=== PATIENT | female | born 1975 | race Caucasian/White ===

== ENCOUNTER 2025-10-19 17:57 | Inpatient (IN) | payer SELFPAY ==
[2025-10-19] VITALS (34 sets, daily range): BP systolic 123–201; BP diastolic 49–114; PULSE 106–137; TEMP 36.9; O2SAT 93–98; BMI 29.5
--- NOTE | 2025-10-19 19:04 | PC.NURSE ---
report handed off to lina nicolas
--- OUTSIDE RECORDS SUMMARY | 2025-10-19 19:29 | XMS_ITS | Clinical Summary ---
Author Organization [facility] Address [id number] [address] [place] [address] Care Team Providers Care Clinical Education Consultant Name Role Phone Unavailable Primary Care Provider Unavailabl e Immunizations ImmunizationAdministration DatesNext DueCOVID-19, mRNA, LNP-S, PF, 100mcg/0.5mL Dose02/10/2021,01/13/2021 Social History Tobacco UseTypesPacks/DayYears UsedDateSmoking Tobacco: Never AssessedChildcare AnswerDate BbiunmvrDnhcgrnbiZtycque97/17/2021EmploymentAnswerDate Recorded IibwhbcvmcFycnypq36/17/2021Purpose - LifeAnswerDate RecordedPurpose and direction in adybSacoyhk57/17/2021CommentsUnknownSex and Gender InformationValueDate RecordedSex Assigned at BirthNot on fileLegal SexFemale 01/11/2021 8:14 AM EDTGender IdentityNot on fileSexual OrientationNot on file Plan of Treatment Health MaintenanceDue DateLast DoneCommentsDepression Runkaixrd32/11/1985Tobacco Ggzntsyly08/11/1985Adult BMI Iwitlobkg43/11/1991DTaP,Tdap and Td Vaccines (1 - Tdap)02/06/1992Pap Smear1994Zoster (Shingles) Vaccine (1 of 2)2023 COVID-19 Vaccine (3 - 2024- season)504/, 01/13/2021Influenza Ezyvvyf6006/28/2025 Medical Devices Not on file
--- NOTE | 2025-10-19 19:37 | CT_ITS ---
The [address] [address] Patient Name: MAREN BANKS MRN: [id number] date: 1975 Sex: F Assigned Patient Location: ER Current Patient Location: ER Accession/Order Number: [id number] Exam Date: 10/19/2025 19:49 Report Date: 10/19/2025 20:50 At the request of: ALISHA SUAREZ Procedure: CT abdomen pelvis w con CT Abdomen and Pelvis withcontrast TECHNIQUE: Axial imaging with 2-D reconstruction. The CT exam was performed using one or more the following dose reduction techniques: Automated exposure control, adjustment of the MA and/or Kv according to patient size, or use of the iterative reconstruction technique. COMPARISON: None History: Lower abdominal pain. Diarrhea for one week. LIMITATIONS: None LOWER THORAX tiny layering low-density pleural effusions. Thickening of distal esophageal wall. May suggest esophagitis or reflux. LIVER: Unremarkable GALLBLADDER: No gallbladder abnormality identified. BILE DUCTS: No dilatation SPLEEN: Unremarkable PANCREAS: Unremarkable ADRENAL GLANDS: Unremarkable KIDNEYS:Curvilinear region of haziness involving the posterior lateral portion of the left kidney identified. Suspected represent remote finding. No parenchymal fracture identified. No active extravasation of contrast. No nephrolithiasis or obstructive uropathy. AORTA: No abdominal aortic aneurysm identified. RETROPERITONEUM: No significant retroperitoneal abnormalities identified. MESENTERY:Unremarkable STOMACH:Unremarkable SMALL BOWEL: The small bowel loops are nondistended. APPENDIX: The appendix is normal. COLON: Unremarkable URINARY BLADDER: Urinary bladder is unremarkable. REPRODUCTIVE SYSTEM: Fibroid uterus. Superior to the urinary bladder and extrinsically compressing on the urinary bladder and adjacent to the uterus and adnexa, there is a thin-walled fluid collection arising from the pelvis extending to the lower abdomen. There is mild adjacent stranding identified. Technique circumferentially covering the collection there is an elongated loop of bowel. There is mild dilatation of loops of bowel. This may result in partial obstruction. This may cause or There is This measures up to 20 cm in craniocaudal dimension. This measures up to 12 cm in AP dimension. PNEUMOPERITONEUM: None PERITONEAL FLUID:Small amount of fluid identified within the pelvis adjacent to the fluid collection. BONY STRUCTURES: Extensive L4-5 spondylosis. ABDOMINAL WALL: Unremarkable CT/CT abdomen pelvis w con IMPRESSION: Large up to 20 cm fluid collection arising from the pelvis extending into the lower abdomen. This effaces the superior portion of the urinary bladder and abuts the adnexa. This may be of adnexal origin. Fibroid uterus. There is an extrinsic compression adjacent bowel loop which nearly completely circumferentially surrounds the fluid collection. There is resulting in mild partial obstructive changes of the bowel.. consideration for surgical/gynecology consultation. Subtle region of curvilinear fatty stranding adjacent to the superior pole of the left kidney. Suspected represent benign finding. May consider short-term follow-up assessment. Impression dictated by: Lyle Lipscomb M.D. 10/19/2025 8:50 PM Dictation [facility] Electronically authenticated by: [id number] Y Date: 10/19/2025 20:50
--- OUTSIDE RECORDS SUMMARY | 2025-10-19 19:55 | XMS_ITS | Encounter Summary ---
Author Organization [facility] Address [id number] [address] [place] [address] Care Team Providers Care Seam Sewer Name Role Phone Unavailable Primary Care Provider Unavailabl e Encounter Details DateTypeDepartmentCare Team (Latest Contact Info)Imlgptuomtb78/23/2025 7:55 PM ESTAncillary Procedure [facility] [employer] [address] [place] [address] Pain Social History Tobacco UseTypesPacks/DayYears UsedDateSmoking Tobacco: Never AssessedChildcare AnswerDate IpmcnktmQgrwaliwmKfzqajh23/17/2021EmploymentAnswerDate Recorded GjtjjasrfaQcyyevw29/17/2021Purpose - LifeAnswerDate RecordedPurpose and direction in fjewGhzqgcu40/17/2021CommentsUnknownSex and Gender InformationValueDate RecordedSex Assigned at BirthNot on fileLegal SexFemale 01/11/2021 8:14 AM EDTGender IdentityNot on fileSexual OrientationNot on file documented as of this encounter Plan of Treatment Not on file documented as of this encounter Procedures Procedure NamePriorityDate/TimeAssociated DiagnosisCommentsCT ABDOMEN AND PELVIS W MXQKJcsbcnk84/23/2025 7:55 PM EST Pain documented in this encounter Results * CT abdomen and pelvis with contrast (10/19/2025 7:55 PM EST)Specimen (Source) Anatomical Location / LateralityCollection Method / VolumeCollection Time Received Time Narrative Authorizing ProviderResult TypeResult StatusScanning Provider ExternalIMG CT ORDERABLESFinal Result documented in this encounter Visit Diagnoses Diagnosis Pain Generalized pain documented in this encounter
[2025-10-19 19:56] LABS: Hematocrit 37.8 % (36.0-48.0); Hemoglobin 12.5 g/dL (12.0-16.0); Mean Corpuscular HGB Conc 33.1 g/dL (29.9-35.2); Mean Corpuscular Hemoglobin 27.7 pg (26.7-34.0); Mean Corpuscular Volume 83.6 fL (81.0-99.0); Platelet Count 345 10^3/uL (150-450); Red Blood Count 4.52 10^6/uL (4.20-5.40); White Blood Count 12.9 10^3/uL (4.0-11.0)
[2025-10-19 20:01] LABS: Glucose Urine UA >=1000 mg/dL (NEGATIVE)
[2025-10-19] MEDS: 0.9 % SODIUM CHLORIDE 1,000 ML 1000 ML IV (20:06)
[2025-10-19 20:13] LABS: Lactate/Lactic Acid 1.1 mmol/L (0.4-2.0)
[2025-10-19 20:13] LABS: Cast Seen? NONE SEEN #/LPF (NONE SEEN); Crystals Seen? None Seen #/HPF (None Seen); Urine Culture Indicated NO
[2025-10-19 20:22] LABS: Alanine Aminotransferase 34 U/L (14-59); Albumin Globulin Ratio 0.4; Albumin Level 2.3 g/dL (3.4-5.0); Alkaline Phosphatase 137 U/L (46-116); Anion Gap 16.7; Aspartate Amino Transferase 22 U/L (15-37); Blood Urea Nitrogen 8.0 mg/dL (7.0-18.0); Calcium 8.9 mg/dL (8.5-10.1); Carbon Dioxide 27.6 mmol/L (21.0-32.0); Chloride 91 mmol/L (98-107); Estimated GFR (African America >60 (>=60 mL/min/1.73m^2); Estimated GFR (Non-African Ame >60 (>=60 mL/min/1.73m^2); Globulin 5.4 g/dL; Glucose 343 mg/dL (74-106); Lipase <10.0 U/L (16.0-77.0); Potassium 3.3 mmol/L (3.5-5.1); Sodium 132 mmol/L (136-145); Total Protein 7.7 g/dL (6.4-8.2)
[2025-10-19 20:42] LABS: Band Neutrophils Absolute 0.1 10^3/uL (0.0-0.3); Basophils Abs Manual 0.00 10^3/uL (0.00-0.10); Basophils Percent Manual 0.0 % (0.2-2.0); Eosinophils Absolute Manual 0.12 10^3/uL (0.00-0.70); Eosinophils Percent Manual 1.0 % (0.9-7.0); Lymphocytes Absolute Manual 2.32 10^3/uL (1.20-3.80); Lymphocytes Percent Manual 18.0 % (20.5-60.0); Monocytes Absolute Manual 1.93 10^3/uL (0.30-0.80); Monocytes Percent Manual 15.0 % (1.7-12.0); Segmented Neut Absolute Manual 8.38 10^3/uL (1.4-6.5); Segmented Neutrophils % Manual 65.0 (43.0-75.0)
--- NOTE | 2025-10-19 21:01 | US_ITS ---
The [address] [address] Patient Name: MAREN BANKS MRN: [id number] date: 1975 Sex: F Assigned Patient Location: ED.MAIN Current Patient Location: ED.MAIN Accession/Order Number: [id number] Exam Date: 10/19/2025 21:29 Report Date: 10/19/2025 22:35 At the request of: ALISHA SUAREZ Procedure: US pelvis transvaginal Transabdominal and transvaginal pelvic ultrasound HISTORY: 20 cm fluid collection identified with CT of abdomen and pelvis 10/16/2025. Assessment for ovarian torsion. The uterus is anteverted and retroflexed. Uterus measures 6.9 x 2.0 x 3.8 cm. Within the uterus of the hypoechoic lesions measuring up to 3.4 cm consistent with fibroids. Small amount of fluid is present in the cul-de-sac. Endometrial total combined thickness of 1.8 mm. Right adnexal region contains hypoechoic area measuring 6.0 x 5.8 x 5.0 cm containing calcifications. Very large hypoechoic area is also present within the pelvis incompletely visualized. Maximal measurement up to 14.7 cm. There is a hypoechoic area within this lesion measuring up to 4 cm. Ovaries cannot be adequately visualized with ultrasound. US/US pelvis transvaginal IMPRESSION: Partial visualization of the large fluid collection better visualized with the CT examination. Within this collection there is a hypoechoic component measuring up to 4.0 cm. This may correspond with region of fat versus soft tissue nodule. This may further suggest origin from the ovary and may represent joint lesion. Ovaries are not visualized to assess for torsion. There is small amount of free fluid in the cul-de-sac. There is no evidence of hemoperitoneum or active bleeding. Impression dictated by: Lyle Lipscomb M.D. 10/19/2025 10:35 PM Dictation Location[facility] Electronically authenticated by: [id number] Y Date: 10/19/2025 22:35
--- NOTE | 2025-10-19 21:20 | ED.GENADUL1 ---
Documented by User: DANIELA Mcbride 10/19/25 22:03 HPI HPI - General Adult General Chief complaint: Nausea/Vomiting/Diarrhea Stated complaint: DEHYDRATED, STOMACH FLU AFTER FLIGHT Time Seen by Provider: 10/19/25 19:11 Source: patient Mode of arrival: walk-in Limitations: no limitations History of Present Illness HPI narrative: Patient is a 50-year-old female that presents with complaints of nausea, diarrhea, and lower abdominal pain that started a week ago while she was on a flight home from [place]. She denies any previous abdominal or pelvic surgeries. She has never been and states she went through menopause about 10 years ago. She has not seen an SUPERINTENDENT MEASUREMENT in about 20 years. She notes that her diarrhea improved around or Saturday but then has been intermittently bad since then. She states she is drinking 12 to 14 glasses of water or Gatorade daily and still feels like she has a dry mouth and is dehydrated. Also reports that she has developed some acid reflux since this started. Related Data Home Medications ?Medication ?Instructions ?Recorded ?Confirmed No Known Home Medications 10/20/25 10/20/25 Allergies Allergy/AdvReac Type Severity Reaction Status Date / Time nitrofurantoin AdvReac Intermediate Diarrhea Verified 10/19/25 18:23 Opioid HPI Opioid Management Most Recent Opioid Data: Last Pain Scale 5 Today, 02:53 Last MAR Pain Assessment Today, 02:53 Review of Systems ROS Status of ROS 10 or more systems reviewed and unremarkable except as noted in history and below PFSH PFSH Social History Little interest or pleasure in doing things: not at all Feeling down, depressed, or hopeless: not at all Exam Narrative Exam Narrative: General: No distress, age-appropriate Skin: Warm, dry, no pallor. No rash. Head: Normocephalic, atraumatic. Neck: Supple, non-tender. Eye: Pupils are equal, round and EOMI. No scleral icterus. Ears, Nose, Mouth, and Throat: No nasal mucosal hypertrophy. Oral mucosa is dry, no posterior oropharynx erythema, uvula is mid-line Cardiovascular: Regular Rate and Rhythm without murmur, gallop or rub. Respiratory: No accessory muscle use or respiratory distress. Lungs are clear to auscultation, no wheezing, rales or rhonchi Chest Wall: no tenderness Back: No midline thoracic or lumbar vertebral tenderness. Musculoskeletal: Full ROM of all extremities, no calf or popliteal tenderness GI: Abdomen is soft, non-distended, LLQ/RLQ tender with palpation. No masses appreciated. No rebound, guarding, or rigidity noted. Neurological: A&O x4. No cranial nerve dysfunction observed. No truncal ataxia. Moves all extremities. Sensation intact. Psychiatric: Cooperative and interactive. Normal mood and affect. Constitutional Vital Signs, click to edit/add: Last Vital Signs Temp 98.4 F 10/19/25 18:23 Pulse 104 H 10/20/25 03:20 Resp 19 10/20/25 03:20 BP 148/106 H 10/20/25 03:00 Pulse Ox 97 10/20/25 03:20 O2 Del Method Room Air 10/19/25 18:23 Documenting provider has reviewed patient's vital signs: yes Course Vital Signs Vital signs: Vital Signs Temperature 98.4 F 10/19/25 18:23 Pulse Rate 131 H 10/19/25 18:23 Respiratory Rate 18 10/19/25 18:23 Blood Pressure 123/49 10/19/25 18:23 Pulse Oximetry 97 10/19/25 18:23 Oxygen Delivery Method Room Air 10/19/25 18:23 Temperature 98.4 F 10/19/25 18:23 Pulse Rate 104 H 10/20/25 03:20 Respiratory Rate 19 10/20/25 03:20 Blood Pressure 148/106 H 10/20/25 03:00 Pulse Oximetry 97 10/20/25 03:20 Oxygen Delivery Method Room Air 10/19/25 18:23 Medical Decision Making MDM Narrative Medical decision making narrative: The patient is a 50-year-old postmenopausal female presenting with one week of nausea, diarrhea, lower abdominal pain, and signs of dehydration. On arrival, she is tachycardic but hemodynamically stable. IV placed and 1 L normal saline ordered. Labs reveal leukocytosis (WBC 12.9), mild hyponatremia (Na 132), hypokalemia (K 3.3), hyperglycemia (glucose 343), and urinalysis notable for glucosuria, ketonuria, and trace hematuria. CT abdomen/pelvis demonstrates a large (~20 cm) pelvic fluid collection, likely of adnexal origin, causing mass effect on the bladder and partial bowel obstruction. Differential diagnosis includes a large ovarian cyst or neoplasm, tubo-ovarian abscess, and partial bowel obstruction secondary to mass effect. The patient will be made NPO given partial obstruction, with IV fluid resuscitation, electrolyte replacement (IV potassium 20 mEq/hour peripherally). Pelvic ultrasound transvaginal ordered to further characterize this fluid collection and rule out ovarian torsion. At this time, 2200, my shift has ended and patients case signed out to Dr Epperson. Disposition pending Ultrasound results and acceptance to a facility with appropriate surgical services. I discussed with patient lab and CT results and that this will require transfer as we do not have surgical services here. Differential Diagnosis Differential Diagnosis: Diverticulitis, gastroenteritis, ischemic bowel disease, appendicitis Lab Data Lab results reviewed: Yes I reviewed the patient's lab results Labs: Lab Results 10/19/25 10/19/25 Range/Units 19:28 19:45 WBC 12.9 H (4.0-11.0) 10^3/uL RBC 4.52 (4.20-5.40) 10^6/uL Hgb 12.5 (12.0-16.0) g/dL Hct 37.8 (36.0-48.0) % MCV 83.6 (81.0-99.0) fL MCH 27.7 (26.7-34.0) pg MCHC 33.1 (29.9-35.2) g/dL RDW 13.0 (11.0-15.0) % Plt Count 345 (150-450) 10^3/uL MPV 10.0 (9.5-13.5) fL Seg Neuts % (Manual) 65.0 (43.0-75.0) Band Neutrophils % 1.0 (0-5) % Lymphocytes % (Manual) 18.0 L (20.5-60.0) % Monocytes % (Manual) 15.0 H (1.7-12.0) % Eosinophils % (Manual) 1.0 (0.9-7.0) % Basophils % (Manual) 0.0 L (0.2-2.0) % Neutrophils # (Manual) 8.38 H (1.4-6.5) 10^3/uL Band Neutrophils # 0.1 (0.0-0.3) 10^3/uL Lymphocytes # (Manual) 2.32 (1.20-3.80) 10^3/uL Monocytes # (Manual) 1.93 H (0.30-0.80) 10^3/uL Eosinophils # (Manual) 0.12 (0.00-0.70) 10^3/uL Basophils # (Manual) 0.00 (0.00-0.10) 10^3/uL Sodium 132 L (136-145) mmol/L Potassium 3.3 L (3.5-5.1) mmol/L Chloride 91 L (98-107) mmol/L Carbon Dioxide 27.6 (21.0-32.0) mmol/L Anion Gap 16.7 BUN 8.0 (7.0-18.0) mg/dL Creatinine 0.72 (0.55-1.02) mg/dL Est GFR ( Amer) >60 (>=60 mL/min/1.73m^2) Est GFR (Non-Af Amer) >60 (>=60 mL/min/1.73m^2) BUN/Creatinine Ratio 11.1 Glucose 343 H (74-106) mg/dL Lactate 1.1 (0.4-2.0) mmol/L Calcium 8.9 (8.5-10.1) mg/dL Total Bilirubin 0.6 (0.2-1.0) mg/dL AST 22 (15-37) U/L ALT 34 (14-59) U/L Alkaline Phosphatase 137 H (46-116) U/L Total Protein 7.7 (6.4-8.2) g/dL Albumin 2.3 L (3.4-5.0) g/dL Globulin 5.4 g/dL Albumin/Globulin Ratio 0.4 Lipase <10.0 L (16.0-77.0) U/L Urine Color Yellow (YELLOW) Urine Clarity Clear (CLEAR) Urine pH 6.0 (5.0-9.0) Ur Specific [place] 1.015 (1.005-1.025) Urine Protein 30 A (NEG/TRACE) mg/dL Urine Glucose (UA) >=1000 A (NEGATIVE) mg/dL Urine Ketones >=80 A (NEGATIVE) mg/dL Urine Occult Blood Moderate A (NEGATIVE) Urine Nitrite Negative (NEGATIVE) Urine Bilirubin Moderate A (NEGATIVE) Urine Urobilinogen 1.0 (0.2-1.0) EU/dL Ur Leukocyte Esterase Negative (NEGATIVE) Urine RBC 5-10 A (0-2) #/HPF Urine WBC 0-2 A (NONE SEEN) #/HPF Ur Squamous Epith Cells Few A (NONE/RARE) #/LPF Urine Crystals None seen (None Seen) #/HPF Urine Bacteria Trace A (NONE SEEN) #/HPF Urine Casts None seen (NONE SEEN) #/LPF Urine Mucus Trace A (NONE SEEN) Ur Culture Indicated? No Imaging Data CT scan - abdomen: Attestation: I have reviewed the pertinent imaging results. Radiologist's impression: ITS Impressions Abdomen/Pelvis CT 10/19/25 19:37 IMPRESSION: Large up to 20 cm fluid collection arising from the pelvis extending into the lower abdomen. This effaces the superior portion of the urinary bladder and abuts the adnexa. This may be of adnexal origin. Fibroid uterus. There is an extrinsic compression adjacent bowel loop which nearly completely circumferentially surrounds the fluid collection. There is resulting in mild partial obstructive changes of the bowel.. consideration for surgical/gynecology consultation. Subtle region of curvilinear fatty stranding adjacent to the superior pole of the left kidney. Suspected represent benign finding. May consider short-term follow-up assessment. Impression dictated by: Lyle Lipscomb M.D. 10/19/2025 8:50 PM Dictation Location: [facility] Electronically authenticated by: [id number] Y Date: 10/19/2025 20:50 Transvaginal US 10/19/25 21:01 IMPRESSION: Partial visualization of the large fluid collection better visualized with the CT examination. Within this collection there is a hypoechoic component measuring up to 4.0 cm. This may correspond with region of fat versus soft tissue nodule. This may further suggest origin from the ovary and may represent joint lesion. Ovaries are not visualized to assess for torsion. There is small amount of free fluid in the cul-de-sac. There is no evidence of hemoperitoneum or active bleeding. Impression dictated by: Lyle Lipscomb M.D. 10/19/2025 10:35 PM Dictation Location: [facility] Electronically authenticated by: [id number] Y Date: 10/19/2025 22:35 US - abdomen: Radiologist's impression: ITS Impressions Abdomen/Pelvis CT 10/19/25 19:37 IMPRESSION: Large up to 20 cm fluid collection arising from the pelvis extending into the lower abdomen. This effaces the superior portion of the urinary bladder and abuts the adnexa. This may be of adnexal origin. Fibroid uterus. There is an extrinsic compression adjacent bowel loop which nearly completely circumferentially surrounds the fluid collection. There is resulting in mild partial obstructive changes of the bowel.. consideration for surgical/gynecology consultation. Subtle region of curvilinear fatty stranding adjacent to the superior pole of the left kidney. Suspected represent benign finding. May consider short-term follow-up assessment. Impression dictated by: Lyle Lipscomb M.D. 10/19/2025 8:50 PM Dictation Location: [facility] Electronically authenticated by: [id number] Y Date: 10/19/2025 20:50 Transvaginal US 10/19/25 21:01 IMPRESSION: Partial visualization of the large fluid collection better visualized with the CT examination. Within this collection there is a hypoechoic component measuring up to 4.0 cm. This may correspond with region of fat versus soft tissue nodule. This may further suggest origin from the ovary and may represent joint lesion. Ovaries are not visualized to assess for torsion. There is small amount of free fluid in the cul-de-sac. There is no evidence of hemoperitoneum or active bleeding. Impression dictated by: Lyle Lipscomb M.D. 10/19/2025 10:35 PM Dictation Location: [facility] Electronically authenticated by: [id number] Y Date: 10/19/2025 22:35 Discharge Plan Discharge Chief Complaint: Nausea/Vomiting/Diarrhea Clinical Impression: Pelvic fluid collection, Partial bowel obstruction, Hypokalemia Patient Disposition: Admitted as Observation Time of Disposition Decision: 03:44 Condition: Fair Documented by User: Callie Epperson MD 10/20/25 03:44 HPI HPI - General Adult General Chief complaint: Nausea/Vomiting/Diarrhea Stated complaint: DEHYDRATED, STOMACH FLU AFTER FLIGHT Time Seen by Provider: 10/19/25 19:11 Related Data Home Medications ?Medication ?Instructions ?Recorded ?Confirmed No Known Home Medications 10/20/25 10/20/25 Allergies Allergy/AdvReac Type Severity Reaction Status Date / Time nitrofurantoin AdvReac Intermediate Diarrhea Verified 10/19/25 18:23 Opioid HPI Opioid Management Most Recent Opioid Data: Last Pain Scale 5 Today, 02:53 Last MAR Pain Assessment Today, 02:53 PFSH PFSH Social History Little interest or pleasure in doing things: not at all Feeling down, depressed, or hopeless: not at all Exam Constitutional Vital Signs, click to edit/add: Last Vital Signs Temp 98.4 F 10/19/25 18:23 Pulse 104 H 10/20/25 03:20 Resp 19 10/20/25 03:20 BP 148/106 H 10/20/25 03:00 Pulse Ox 97 10/20/25 03:20 O2 Del Method Room Air 10/19/25 18:23 Course Vital Signs Vital signs: Vital Signs Temperature 98.4 F 10/19/25 18:23 Pulse Rate 131 H 10/19/25 18:23 Respiratory Rate 18 10/19/25 18:23 Blood Pressure 123/49 10/19/25 18:23 Pulse Oximetry 97 10/19/25 18:23 Oxygen Delivery Method Room Air 10/19/25 18:23 Temperature 98.4 F 10/19/25 18:23 Pulse Rate 104 H 10/20/25 03:20 Respiratory Rate 19 10/20/25 03:20 Blood Pressure 148/106 H 10/20/25 03:00 Pulse Oximetry 97 10/20/25 03:20 Oxygen Delivery Method Room Air 10/19/25 18:23 Medical Decision Making [facility] Narrative Medical decision making narrative: The patient is a 50-year-old postmenopausal female presenting with one week of nausea, diarrhea, lower abdominal pain, and signs of dehydration. On arrival, she is tachycardic but hemodynamically stable. IV placed and 1 L normal saline ordered. Labs reveal leukocytosis (WBC 12.9), mild hyponatremia (Na 132), hypokalemia (K 3.3), hyperglycemia (glucose 343), and urinalysis notable for glucosuria, ketonuria, and trace hematuria. CT abdomen/pelvis demonstrates a large (~20 cm) pelvic fluid collection, likely of adnexal origin, causing mass effect on the bladder and partial bowel obstruction. Differential diagnosis includes a large ovarian cyst or neoplasm, tubo-ovarian abscess, and partial bowel obstruction secondary to mass effect. The patient will be made NPO given partial obstruction, with IV fluid resuscitation, electrolyte replacement (IV potassium 20 mEq/hour peripherally). Pelvic ultrasound transvaginal ordered to further characterize this fluid collection and rule out ovarian torsion. At this time, 2200, my shift has ended and patients case signed out to Dr Epperson. Disposition pending Ultrasound results and acceptance to a facility with appropriate surgical services. I discussed with patient lab and CT results and that this will require transfer as we do not have surgical services here. This patient was seen and evaluated in conjunction with the physician general surgery physician assistant. He states that her bowels typically are all or nothing , by that she means she either has diarrhea or constipation. She has never been diagnosed with diverticulitis or irritable bowel syndrome. She presents for evaluation of flulike symptoms according to her. She states she has been having diarrhea and intermittent nausea. She has not had any fever or active vomiting. She was tachycardic upon arrival. She has made several trips to the bathroom. CT scan shows a large approximately 20 cm pelvic fluid collection likely of adnexal origin, please refer to the full CT scan report, it also shows a partial bowel obstruction secondary to mass effect. Ultrasound was ordered to rule out torsion. The ultrasound was unable to thoroughly evaluate the ovaries. There is no sign of any active bleeding. This case was discussed at length with the [facility] department at [facility] and she is accepted for admission to the [facility] service under the service of Dr. Shetty. A bed is not immediately available for this patient at [facility]. She was accepted as a boarder for [facility] by Dr. Rodriguez Lab Data Labs: Lab Results 10/19/25 10/19/25 Range/Units 19:28 19:45 WBC 12.9 H (4.0-11.0) 10^3/uL RBC 4.52 (4.20-5.40) 10^6/uL Hgb 12.5 (12.0-16.0) g/dL Hct 37.8 (36.0-48.0) % MCV 83.6 (81.0-99.0) fL MCH 27.7 (26.7-34.0) pg MCHC 33.1 (29.9-35.2) g/dL RDW 13.0 (11.0-15.0) % Plt Count 345 (150-450) 10^3/uL MPV 10.0 (9.5-13.5) fL Seg Neuts % (Manual) 65.0 (43.0-75.0) Band Neutrophils % 1.0 (0-5) % Lymphocytes % (Manual) 18.0 L (20.5-60.0) % Monocytes % (Manual) 15.0 H (1.7-12.0) % Eosinophils % (Manual) 1.0 (0.9-7.0) % Basophils % (Manual) 0.0 L (0.2-2.0) % Neutrophils # (Manual) 8.38 H (1.4-6.5) 10^3/uL Band Neutrophils # 0.1 (0.0-0.3) 10^3/uL Lymphocytes # (Manual) 2.32 (1.20-3.80) 10^3/uL Monocytes # (Manual) 1.93 H (0.30-0.80) 10^3/uL Eosinophils # (Manual) 0.12 (0.00-0.70) 10^3/uL Basophils # (Manual) 0.00 (0.00-0.10) 10^3/uL Sodium 132 L (136-145) mmol/L Potassium 3.3 L (3.5-5.1) mmol/L Chloride 91 L (98-107) mmol/L Carbon Dioxide 27.6 (21.0-32.0) mmol/L Anion Gap 16.7 BUN 8.0 (7.0-18.0) mg/dL Creatinine 0.72 (0.55-1.02) mg/dL Est GFR ( Amer) >60 (>=60 mL/min/1.73m^2) Est GFR (Non-Af Amer) >60 (>=60 mL/min/1.73m^2) BUN/Creatinine Ratio 11.1 Glucose 343 H (74-106) mg/dL Lactate 1.1 (0.4-2.0) mmol/L Calcium 8.9 (8.5-10.1) mg/dL Total Bilirubin 0.6 (0.2-1.0) mg/dL AST 22 (15-37) U/L ALT 34 (14-59) U/L Alkaline Phosphatase 137 H (46-116) U/L Total Protein 7.7 (6.4-8.2) g/dL Albumin 2.3 L (3.4-5.0) g/dL Globulin 5.4 g/dL Albumin/Globulin Ratio 0.4 Lipase <10.0 L (16.0-77.0) U/L Urine Color Yellow (YELLOW) Urine Clarity Clear (CLEAR) Urine pH 6.0 (5.0-9.0) Ur Specific [place] 1.015 (1.005-1.025) Urine Protein 30 A (NEG/TRACE) mg/dL Urine Glucose (UA) >=1000 A (NEGATIVE) mg/dL Urine Ketones >=80 A (NEGATIVE) mg/dL Urine Occult Blood Moderate A (NEGATIVE) Urine Nitrite Negative (NEGATIVE) Urine Bilirubin Moderate A (NEGATIVE) Urine Urobilinogen 1.0 (0.2-1.0) EU/dL Ur Leukocyte Esterase Negative (NEGATIVE) Urine RBC 5-10 A (0-2) #/HPF Urine WBC 0-2 A (NONE SEEN) #/HPF Ur Squamous Epith Cells Few A (NONE/RARE) #/LPF Urine Crystals None seen (None Seen) #/HPF Urine Bacteria Trace A (NONE SEEN) #/HPF Urine Casts None seen (NONE SEEN) #/LPF Urine Mucus Trace A (NONE SEEN) Ur Culture Indicated? No Imaging Data CT scan - abdomen: Radiologist's impression: ITS Impressions Abdomen/Pelvis CT 10/19/25 19:37 IMPRESSION: Large up to 20 cm fluid collection arising from the pelvis extending into the lower abdomen. This effaces the superior portion of the urinary bladder and abuts the adnexa. This may be of adnexal origin. Fibroid uterus. There is an extrinsic compression adjacent bowel loop which nearly completely circumferentially surrounds the fluid collection. There is resulting in mild partial obstructive changes of the bowel.. consideration for surgical/gynecology consultation. Subtle region of curvilinear fatty stranding adjacent to the superior pole of the left kidney. Suspected represent benign finding. May consider short-term follow-up assessment. Impression dictated by: Lyle Lipscomb M.D. 10/19/2025 8:50 PM Dictation Location: [facility] Electronically authenticated by: [id number] Y Date: 10/19/2025 20:50 Transvaginal US 10/19/25 21:01 IMPRESSION: Partial visualization of the large fluid collection better visualized with the CT examination. Within this collection there is a hypoechoic component measuring up to 4.0 cm. This may correspond with region of fat versus soft tissue nodule. This may further suggest origin from the ovary and may represent joint lesion. Ovaries are not visualized to assess for torsion. There is small amount of free fluid in the cul-de-sac. There is no evidence of hemoperitoneum or active bleeding. Impression dictated by: Lyle Lipscomb M.D. 10/19/2025 10:35 PM Dictation Location: [facility] Electronically authenticated by: [id number] Y Date: 10/19/2025 22:35 US - abdomen: Radiologist's impression: ITS Impressions Abdomen/Pelvis CT 10/19/25 19:37 IMPRESSION: Large up to 20 cm fluid collection arising from the pelvis extending into the lower abdomen. This effaces the superior portion of the urinary bladder and abuts the adnexa. This may be of adnexal origin. Fibroid uterus. There is an extrinsic compression adjacent bowel loop which nearly completely circumferentially surrounds the fluid collection. There is resulting in mild partial obstructive changes of the bowel.. consideration for surgical/gynecology consultation. Subtle region of curvilinear fatty stranding adjacent to the superior pole of the left kidney. Suspected represent benign finding. May consider short-term follow-up assessment. Impression dictated by: Lyle Lipscmob M.D. 10/19/2025 8:50 PM Dictation Location: [facility] Electronically authenticated by: [id number] Y Date: 10/19/2025 20:50 Transvaginal US 10/19/25 21:01 IMPRESSION: Partial visualization of the large fluid collection better visualized with the CT examination. Within this collection there is a hypoechoic component measuring up to 4.0 cm. This may correspond with region of fat versus soft tissue nodule. This may further suggest origin from the ovary and may represent joint lesion. Ovaries are not visualized to assess for torsion. There is small amount of free fluid in the cul-de-sac. There is no evidence of hemoperitoneum or active bleeding. Impression dictated by: Lyle Lipscomb M.D. 10/19/2025 10:35 PM Dictation Location: [facility] Electronically authenticated by: [id number] Y Date: 10/19/2025 22:35 Discharge Plan Discharge Chief Complaint: Nausea/Vomiting/Diarrhea Clinical Impression: Pelvic fluid collection, Partial bowel obstruction, Hypokalemia Patient Disposition: Admitted as Observation Time of Disposition Decision: 03:44 Condition: Fair
[2025-10-19] MEDS: POTASSIUM CHLORIDE IN WATER 10 MEQ/100 ML PREMIX 100 MEQ IV ×2 (21:59→23:07)
[2025-10-19] MEDS: 0.9 % SODIUM CHLORIDE 1,000 ML 150 ML IV (23:01)
--- NOTE | 2025-10-19 23:41 | ECG_ITS ---
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 Measurements Intervals [place] Rate: 120 P: 39 NE: 122 QRS: 21 QRSD: 86 T: -60 QT: 318 QTc: 389 Interpretive Statements 1120 Sinus tachycardia [address] depression 4564 Twave abnormality, possible lateral ischemia 4664 Twave abnormality, possible inferior ischemia 9150 abnormal ECG No previous ECG available for comparison Electronically Signed On 10-20-2025 11:43:03 EST by JENNIFER BERMEO M.D.
[2025-10-20] VITALS (25 sets, daily range): BP systolic 117–194; BP diastolic 87–128; PULSE 104–121; TEMP 36.6–37.1; O2SAT 90–97; BMI 34.8
--- OUTSIDE RECORDS SUMMARY | 2025-10-20 01:36 | XMS_ITS | Encounter Summary ---
Author Organization [facility] Address [id number] [address] [place] [address] Care Team Providers Care National Investigative Producer Name Role Phone Unavailable Primary Care Provider Unavailabl e Encounter Details DateTypeDepartmentCare Team (Latest Contact Info)Ygsxphbyuei32/24/2025 1:36 AM ESTHospital Encounter [facility] - 7 Oncology/Stroke [address] [place] [address] Teodoro Colon MD [address], [address] [place] [address] Social History Tobacco UseTypesPacks/DayYears UsedDateSmoking Tobacco: Never AssessedChildcare AnswerDate ZwgjqcsqAepgplfwlChtgujv34/17/2021EmploymentAnswerDate Recorded NskzsxknpwQpkakpn58/17/2021Purpose - LifeAnswerDate RecordedPurpose and direction in piydGovowir74/17/2021CommentsUnknownSex and Gender InformationValueDate RecordedSex Assigned at BirthNot on fileLegal SexFemale 01/11/2021 8:14 AM EDTGender IdentityNot on fileSexual OrientationNot on file documented as of this encounter Plan of Treatment Not on file documented as of this encounter Visit Diagnoses Not on filedocumented in this encounter
--- NOTE | 2025-10-20 01:45 | PC.NURSE ---
Assumed care of this pt, pt resting on cart room 9
[2025-10-20] MEDS: MORPHINE SULFATE 4 MG/ML VIAL IV (02:53)
[2025-10-20 06:04] LABS: Hematocrit 35.0 % (36.0-48.0); Hemoglobin 11.2 g/dL (12.0-16.0); Immature Granulocytes Abs Auto 0.30 10^3/uL (0.00-0.03); Immature Granulocytes Pct Auto 3.1 % (0.0-0.5); Lymphocytes Absolute Auto 1.8 10^3/uL (1.2-3.8); Mean Corpuscular HGB Conc 32.0 g/dL (29.9-35.2); Mean Corpuscular Hemoglobin 27.1 pg (26.7-34.0); Mean Corpuscular Volume 84.5 fL (81.0-99.0); Platelet Count 310 10^3/uL (150-450); Red Blood Count 4.14 10^6/uL (4.20-5.40); White Blood Count 9.7 10^3/uL (4.0-11.0)
[2025-10-20 06:37] LABS: Alanine Aminotransferase 27 U/L (14-59); Albumin Globulin Ratio 0.4; Albumin Level 2.0 g/dL (3.4-5.0); Alkaline Phosphatase 115 U/L (46-116); Anion Gap 18.6; Aspartate Amino Transferase 19 U/L (15-37); Blood Urea Nitrogen 6.0 mg/dL (7.0-18.0); Calcium 8.3 mg/dL (8.5-10.1); Carbon Dioxide 23.8 mmol/L (21.0-32.0); Chloride 96 mmol/L (98-107); Estimated GFR (African America >60 (>=60 mL/min/1.73m^2); Estimated GFR (Non-African Ame >60 (>=60 mL/min/1.73m^2); Globulin 4.9 g/dL; Glucose 281 mg/dL (74-106); Magnesium 1.9 mg/dL (1.8-2.4); Potassium 3.4 mmol/L (3.5-5.1); Sodium 135 mmol/L (136-145); Total Protein 6.9 g/dL (6.4-8.2)
--- NOTE | 2025-10-20 08:20 | CM.NOTE ---
Rounds made with Dr. Rodriguez, discussed with pt diagnosis and plan of care. Pt awaiting transfer to [facility]. CM talked with pt regarding insurance, pt is true self pay. Pt states she filled out paperwork in ER.
[2025-10-20] MEDS: INSULIN GLARGINE 300 UNIT/3 ML INSULN.PEN 25 UNIT SQ (08:29)
--- NOTE | 2025-10-20 08:41 | ECG_ITS ---
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 Measurements Intervals [place] Rate: 100 P: 44 HI: 139 QRS: 42 QRSD: 91 T: 10 QT: 342 QTc: 442 Interpretive Statements SINUS TACHYCARDIA NONSPECIFIC T-WAVE ABNORMALITY ABNORMAL RHYTHM ECG Compared to ECG 10/19/2025 18:56:56 ST (T wave) deviation less evident in inferolateral Electronically Signed On 10-20-2025 11:45:33 EST by JENNIFER BERMEO M.D.
--- NOTE | 2025-10-20 08:47 | P.HP_ITS ---
HPI H&P: HPI History of Present Illness Chief complaint: OVARIAN CYST Narrative: Mrs. Mitchell is a 51-year-old female who came to the emergency room complaining of loose stool and lower abdominal pain. She was found to have a large pelvic cyst. She was accepted to be transferred to [place] however there is no bed available therefore I was asked to admit her. Patient was found to have low potassium. Patient was found to have hyperglycemia. Her A1c came back at 13. Blood sugar is 332. Patient lost 100 pounds over the last year or so trying to prevent having diabetes. No cardio history. Opioid HPI Opioid Management Most Recent Pain and Opioid Data: Last Pain Scale 3 Today, 07:48 Last Pain Assessment Today, 08:49 Last MAR Pain Assessment Today, 02:53 Last ORT Total Score 0 Today, 04:11 Last ORT Risk Category Low Risk Today, 04:11 Review of Systems ROS Status of ROS 10 or more systems reviewed and unremark able except as noted in history and below PFSH PFSH Family History (Updated 10/20/25 @ 04:33 by Indigo Burger) Grandmother Family history of breast cancer Aunt Family history of breast cancer Mother Family history of heart disease Family history of diabetes mellitus Social History (Updated 10/20/25 @ 04:33 by Indigo Burger) Within the past year, how often did you have a drink containing alcohol: never Score interpretation: A score less than 3 is consistent with normal alcohol consumption. Smoking status: Never smoker Second hand tobacco smoke exposure: No Non-prescribed substance use: denies use Highest level of school completed/degree received: some college, no degree Are you now , , , , never or living with a partner: never In a typical week, how many times do you talk on the telephone with family, friends, or neighbors: 3 or more times per week Little interest or pleasure in doing things: not at all Feeling down, depressed, or hopeless: not at all Gender Identity: female Meds Home Medications and Allergies Home Medications ?Medication ?Instructions ?Recorded ?Confirmed ?Type No Known Home Medications 10/20/2509/28 History Allergies Allergy/AdvReac Type Severity Reaction Status Date / Time nitrofurantoin AdvReac Intermediate Diarrhea Verified 10/19/25 18:23 Exam Narrative Exam Narrative: [pt is awake and alert. oriented to place, time and person, obese HEENT: [place] conjunctiva and NL buccal mucosa Neck: Supple, no tenderness Endocrine: No Thyromegaly. Vascular: No JVD or carotid bruit. Lymphatic: No cervical lymphadenopathy. Chest: CTA no DTP. Heart RRR, no extra sound or murmur. Abd: Soft, tenderness in the lower abdomen and suprapubic area. No guarding, no rigidity. Increase abd girth therefore clinically I could not exclude the possibility of intra abd mass or organomegaly. LE: No cyanosis or clubbing, no varices or edema. Neuro: A A O. Nl speech, comprehension and attention. Nl and symetrical motor and tone examination through out. []] Constitutional Vital Signs, click to edit/add: Last Vital Signs Temp 98.8 F 10/20/25 07:33 Pulse 110 H 10/20/25 07:33 Resp 24 H 10/20/25 07:33 BP 163/96 H 10/20/25 07:33 Pulse Ox 92 L 10/20/25 07:33 O2 Del Method Room Air 10/20/25 04:11 Results Labs Labs: Short CBC 10/19/25 10/20/25 Range/Units 19:45 05:29 WBC 12.9 H 9.7 (4.0-11.0) 10^3/uL Hgb 12.5 11.2 L (12.0-16.0) g/dL Hct 37.8 35.0 L (36.0-48.0) % Plt Count 345 310 (150-450) 10^3/uL BMP 10/19/25 10/20/25 19:45 05:29 Sodium 132 L 135 L Potassium 3.3 L 3.4 L Chloride 91 L 96 L Carbon Dioxide 27.6 23.8 BUN 8.0 6.0 L Creatinine 0.72 0.68 Glucose 343 H 281 H Calcium 8.9 8.3 L Liver Function 10/19/25 10/20/25 Range/Units 19:45 05:29 Total Bilirubin 0.6 0.5 (0.2-1.0) mg/dL AST 22 19 (15-37) U/L ALT 34 27 (14-59) U/L Alkaline Phosphatase 137 H 115 (46-116) U/L Albumin 2.3 L 2.0 L (3.4-5.0) g/dL Urine 10/19/25 Range/Units 19:28 Urine Color Yellow (YELLOW) Urine Clarity Clear (CLEAR) Urine pH 6.0 (5.0-9.0) Ur Specific [place] 1.015 (1.005-1.025) Urine Protein 30 A (NEG/TRACE) mg/dL Urine Glucose (UA) >=1000 A (NEGATIVE) mg/dL Assessment and Plan Assessment and Plan (1) Hypokalemia: (2) Partial bowel obstruction: (3) Pelvic fluid collection: (4) Diabetes: Plan Large pelvic cyst, 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 Probable compression on the bladder and bowel Patient was accepted to go to [place] to be seen by general surgery and OPERATIONS ADMINISTRATIVE ASSISTANT. No bed available therefore I was asked to admit her. As needed pain medication. Clear liquid diet Hypokalemia Potassium supplementation. Check magnesium and phosphorus level which came back negative. Newly diagnosed diabetes. Blood sugar is above 300. Requested A1c which came back elevated at 13. I started patient on Lantus, meal insulin as well as sliding scale. Patient is well knowledgeable about diabetes. Her mother has had diabetes for a long time. Recommend endocrinology consult when patient arrives in [place]. Hypertension, poor control I started patient on Lopressor and lisinopril. These will need to be titrated to keep systolic between 135 and 145. Anemia, no evidence of acute blood loss. Patient will likely require to have anemia workup to be done in the outpatient setting to be handled by PCP in collaboration with other needed outpatient providers. This may include but not limited to EGD, colonoscopy, referral to see hematology and other needed age-appropriate cancer screening. Chronic, subacute medical conditions not listed above, abnormal labs and imaging, incidental findings seen on labs and or imaging. These would need to be addressed. Could be addressed later on or in the outpatient setting by PCP collaboration with other needed outpatient providers when time and condition are appropriate.
--- NOTE | 2025-10-20 08:50 | CM.NOTE ---
Nadja called and spoke with CM, pt will transfer to [facility] with Dr. Colon accepting. CM spoke with pt, pt in agreement for [facility]. ALY also updated Dr. Rodriguez. Med surg membership secretary will set up transfer for pt. RN provided with bed number and report number.
--- NOTE | 2025-10-20 08:59 | P.DS_ITS ---
DS: Providers Provider Date of admission: 10/20/25 04:02 Primary care physician: Non-Staff Physician, DS: Diagnosis Discharge Diagnosis (1) Hypokalemia: (2) Partial bowel obstruction: (3) Pelvic fluid collection: (4) Diabetes: Plan As listed above, below and others that are not listed DS: Summary Hospital Course Hospital Course: Mrs. 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 Probable compression on the bladder and bowel Patient was accepted to go to [place] to be seen by general surgery and TRAFFIC II MANAGER. No bed available therefore I was asked to admit her. As needed pain medication. Clear liquid diet Hypokalemia Potassium supplementation. Check magnesium and phosphorus level which came back negative. Newly diagnosed diabetes. Blood sugar is above 300. Requested A1c which came back elevated at 13. I started patient on Lantus, meal insulin as well as sliding scale. Patient is well knowledgeable about diabetes. Her mother has had diabetes for a long time. Recommend endocrinology consult when patient arrives in [place]. Hypertension, poor control I started patient on Lopressor and lisinopril. These will need to be titrated to keep systolic between 135 and 145. Anemia, no evidence of acute blood loss. Patient will likely require to have anemia workup to be done in the outpatient setting to be handled by PCP in collaboration with other needed outpatient providers. This may include but not limited to EGD, colonoscopy, referral to see hematology and other needed age-appropriate cancer screening. Chronic, subacute medical conditions not listed above, abnormal labs and imaging, incidental findings seen on labs and or imaging. These would need to be addressed. Could be addressed later on or in the outpatient setting by PCP collaboration with other needed outpatient providers when time and condition are appropriate. Time Spent with Patient Time attestation: Total time spent providing and/or coordinating discharge services: Exam Constitutional Vital Signs, click to edit/add: Last Vital Signs Temp 98.8 F 10/20/25 07:33 Pulse 110 H 10/20/25 07:33 Resp 24 H 10/20/25 07:33 BP 163/96 H 10/20/25 07:33 Pulse Ox 92 L 10/20/25 07:33 O2 Del Method Room Air 10/20/25 04:11 DS: Data Data Completed and Pending Labs on day of discharge: Labs from last 24 hours 10/20/25 10/20/25 10/19/25 05:29 04:14 19:45 WBC 9.7 12.9 H RBC 4.14 L 4.52 Hgb 11.2 L 12.5 Hct 35.0 L 37.8 MCV 84.5 83.6 MCH 27.1 27.7 MCHC 32.0 33.1 RDW 13.1 13.0 Plt Count 310 345 MPV 10.2 10.0 Neut % (Auto) 63.0 Lymph % (Auto) 19.0 L [place] % (Auto) 13.5 H Eos % (Auto) 0.9 Baso % (Auto) 0.5 Neut # (Auto) 6.1 Lymph # (Auto) 1.8 [place] # (Auto) 1.3 H Eos # (Auto) 0.1 Baso # (Auto) 0.1 Abs Immat Gran (auto) 0.30 H Seg Neuts % (Manual) 65.0 Band Neutrophils % 1.0 Lymphocytes % (Manual) 18.0 L Monocytes % (Manual) 15.0 H Eosinophils % (Manual) 1.0 Basophils % (Manual) 0.0 L Imm/Tot Granulo (auto) 3.1 H Neutrophils # (Manual) 8.38 H Band Neutrophils # 0.1 Lymphocytes # (Manual) 2.32 Monocytes # (Manual) 1.93 H Eosinophils # (Manual) 0.12 Basophils # (Manual) 0.00 Sodium 135 L 132 L Potassium 3.4 L 3.3 L Chloride 96 L 91 L Carbon Dioxide 23.8 27.6 Anion Gap 18.6 16.7 BUN 6.0 L 8.0 Creatinine 0.68 0.72 Est GFR ( Amer) >60 >60 Est GFR (Non-Af Amer) >60 >60 BUN/Creatinine Ratio 8.8 11.1 Glucose 281 H 343 H Estimat Average Glucose 332 Hemoglobin A1c 13.2 H Lactate 1.1 Calcium 8.3 L 8.9 Phosphorus 3.2 Magnesium 1.9 Total Bilirubin 0.5 0.6 AST 19 22 ALT 27 34 Alkaline Phosphatase 115 137 H Total Protein 6.9 7.7 Albumin 2.0 L 2.3 L Globulin 4.9 5.4 Albumin/Globulin Ratio 0.4 0.4 Lipase <10.0 L Urine Color Urine Clarity Urine pH Ur Specific [place] Urine Protein Urine Glucose (UA) Urine Ketones Urine Occult Blood Urine Nitrite Urine Bilirubin Urine Urobilinogen Ur Leukocyte Esterase Urine RBC Urine WBC Ur Squamous Epith Cells Urine Crystals Urine Bacteria Urine Casts Urine Mucus Ur Culture Indicated? POC Glucose 283 H 10/19/25 19:28 WBC RBC Hgb Hct MCV MCH MCHC RDW Plt Count MPV Neut % (Auto) Lymph % (Auto) [place] % (Auto) Eos % (Auto) Baso % (Auto) Neut # (Auto) Lymph # (Auto) [place] # (Auto) Eos # (Auto) Baso # (Auto) Abs Immat Gran (auto) Seg Neuts % (Manual) Band Neutrophils % Lymphocytes % (Manual) Monocytes % (Manual) Eosinophils % (Manual) Basophils % (Manual) Imm/Tot Granulo (auto) Neutrophils # (Manual) Band Neutrophils # Lymphocytes # (Manual) Monocytes # (Manual) Eosinophils # (Manual) Basophils # (Manual) Sodium Potassium Chloride Carbon Dioxide Anion Gap BUN Creatinine Est GFR ( Amer) Est GFR (Non-Af Amer) BUN/Creatinine Ratio Glucose Estimat Average Glucose Hemoglobin A1c Lactate Calcium Phosphorus Magnesium Total Bilirubin AST ALT Alkaline Phosphatase Total Protein Albumin Globulin Albumin/Globulin Ratio Lipase Urine Color Yellow Urine Clarity Clear Urine pH 6.0 Ur Specific [place] 1.015 Urine Protein 30 A Urine Glucose (UA) >=1000 A Urine Ketones >=80 A Urine Occult Blood Moderate A Urine Nitrite Negative Urine Bilirubin Moderate A Urine Urobilinogen 1.0 Ur Leukocyte Esterase Negative Urine RBC 5-10 A Urine WBC 0-2 A Ur Squamous Epith Cells Few A Urine Crystals None seen Urine Bacteria Trace A Urine Casts None seen Urine Mucus Trace A Ur Culture Indicated? No POC Glucose Discharge Plan Discharge Disposition: Xfer Acute Care Hospital Condition: Fair
[2025-10-20] MEDS: METOPROLOL TARTRATE 25 MG TABLET PO (09:05)
[2025-10-20] MEDS: LISINOPRIL 10 MG TABLET PO (09:06)
[2025-10-20] MEDS: POTASSIUM CHLORIDE 10 MEQ ER TABLET 40 MEQ PO (09:06)
--- NOTE | 2025-10-20 09:12 | PC.NURSE ---
Report called to Candy at [facility]. Expected to be transported at 1030 this am per ambulance
--- NOTE | 2025-10-20 10:18 | SWNOTE1 ---
SW spoke to CM and pt is a true self pay. CM spoke to pt and pt confirmed she filled out paperwork in the ED and turned it in. SW reached out to Francisca Rosales in patient financial services. Francisca confirmed they do have all the paperwork they need at this time. JENNIFER updated CM.
--- OUTSIDE RECORDS SUMMARY | 2025-10-20 11:10 | XMS_ITS | Clinical Summary ---
Author Organization [employer] Address [id number] [place] [address] Care Team Providers Care Forensic Document Examiner Name Role Phone Unavailable Primary Care Provider Unavailabl e Encounters DateTypeDepartmentCare DhmqLreofbuyvcs20/24/2025 1:36 AM ESTHospital Encounter [facility] - 7 Oncology/Stroke [address] [place] [phone] Teodoro Colon MD 10/19/2025 7:55 PM ESTAncillary Procedure [facility] [employer] [address] [place] [address] Pain10/19/2025Telephone [facility] Call Center [address] [place] [phone] Delisa Ponce Ovarian Cystfrom Last 3 Months Immunizations ImmunizationAdministration DatesNext DueCOVID-19, mRNA, LNP-S, PF, 100mcg/0.5mL Dose02/10/2021,01/13/2021 Social History Tobacco UseTypesPacks/DayYears UsedDateSmoking Tobacco: Never AssessedChildcare AnswerDate EymqnmjiYdagmybeaVajaznf23/17/2021EmploymentAnswerDate Recorded CjaekmatkbZgfkgzq75/17/2021Purpose - LifeAnswerDate RecordedPurpose and direction in dwxbMyksgyz92/17/2021CommentsUnknownSex and Gender InformationValueDate RecordedSex Assigned at BirthNot on fileLegal SexFemale 01/11/2021 8:14 AM EDTGender IdentityNot on fileSexual OrientationNot on file Plan of Treatment Health MaintenanceDue DateLast DoneCommentsDepression Lpaqsayza90/11/1985Tobacco Yzufbldfy20/11/1985Adult BMI Rxfnpafcy23/11/1991DTaP,Tdap and Td Vaccines (1 - Tdap)02/06/1992Pap Smear1994Zoster (Shingles) Vaccine (1 of 2)2023 COVID-19 Vaccine (5 - 2024- season)51, 11/01/2021, 02/10/2021, Additional history existsInfluenza Iuigvle1306/28/2025 Medical Devices Not on file Procedures Procedure NamePriorityDate/TimeAssociated DiagnosisCommentsCT ABDOMEN AND PELVIS W LSPPOqekbgw23/23/2025 7:55 PM EST Pain from Last 3 Months Results * CT abdomen and pelvis with contrast (10/19/2025 7:55 PM EST)Specimen (Source) Anatomical Location / LateralityCollection Method / VolumeCollection Time Received Time Narrative Authorizing ProviderResult TypeResult StatusScanning Provider ExternalIMG CT ORDERABLESFinal Result from Last 3 Months
--- OUTSIDE RECORDS SUMMARY | 2025-10-20 11:10 | XMS_ITS | Clinical Summary ---
Author Organization [facility] lin Address [address] [place] [address] Care Team Providers Care Closing Specialist Name Role Phone Unavailable Primary Care Provider Unavailabl e Social History Tobacco UseTypesPacks/DayYears UsedDateSmoking Tobacco: Never Assessed CommentsUnknownSex and Gender InformationValueDate RecordedSex Assigned at Not on fileLegal HejQqlvpl05/19/2021 1:03 PM EDTGender IdentityNot on fileSexual OrientationNot on file Plan of Treatment Not on file Medical Devices Not on file
--- OUTSIDE RECORDS SUMMARY | 2025-10-20 11:10 | XMS_ITS | Encounter Summary ---
Author Organization [employer] [facility] Address [id number] [place] [address] Care Team Providers Care Industrial Registered Nurse Name Role Phone Unavailable Primary Care Provider Unavailabl e Reason for Visit * ReasonOnset DateCommentsOvarian Cyst10/19/2025 Encounter Details DateTypeDepartmentCare Team (Latest Contact Info)Bqauhkqefsc99/23/2025Telephone [facility] Call Center [address] [place] [address] Delisa Ponce Ovarian Cyst Social History Tobacco UseTypesPacks/DayYears UsedDateSmoking Tobacco: Never AssessedChildcare AnswerDate LwfoajalZizhhebvlSqsydfd29/17/2021EmploymentAnswerDate Recorded EwqvqviradFjvziez48/17/2021Purpose - LifeAnswerDate RecordedPurpose and direction in ydxmSoqmpba93/17/2021CommentsUnknownSex and Gender InformationValueDate RecordedSex Assigned at BirthNot on fileLegal SexFemale 01/11/2021 8:14 AM EDTGender IdentityNot on fileSexual OrientationNot on file documented as of this encounter Miscellaneous Notes * Telephone Encounter - Delisa Ponce - 10/19/2025 11:43 PM EST Contract: 166 re Ovarian Cyst * Telephone Encounter - Delisa Ponce - 10/19/2025 11:43 PM EST Paged to Resident to call [facility] documented in this encounter Plan of Treatment Not on file documented as of this encounter Visit Diagnoses Not on filedocumented in this encounter
[2025-10-21 04:07] LABS: CEA <0.6 ng/mL (0.0-4.7)
== END 2025-10-20 10:52 | disposition short-term general hospital (02) | DRG 760 ==
LOC: ER 10-20 03:44 → MS 10-20 08:59
PROVIDERS: Physician Assistant; Admitting Provider Internal Medicine; Emergency Provider Emergency Medicine; Visit Provider Internal Medicine
DX: N94.89 Other specified conditions associated with female genital organs and menstrual cycle (principal); K56.600 Partial intestinal obstruction, unspecified as to cause; E87.6 Hypokalemia; E11.9 Type 2 diabetes mellitus without complications; I10 Essential (primary) hypertension; D64.9 Anemia, unspecified
CPT/HCPCS: 36415; 74177; 76830; 80053; 81001; 82378; 82948; 83036; 83605; 83690; 83735; 84100; 84484; 85007; 85025; 85027; 86304; 93005; 96361; 96365; 96366; 96375; 99285; J2270; J2405; J3480; Q9967